=== PATIENT | female | born 1960 | race African-American/Black ===

== ENCOUNTER 2019-11-22 13:03 | Emergency (ER) | payer OTHER ==
[~2019-11-22] VITALS: Ht 167.6 cm; Wt 76.7 kg
[~2019-11-22 13:03] MED LIST: SERT100T12 PO; ZOLP10TA2 PO
[2019-11-22 13:37] LABS: BASOPHILS % (AUTO) 0.5 % (0.0-2.0); EOSINOPHILS % (AUTO) 0.5 % (0.0-6.0); HEMATOCRIT 39 % (33-45); HEMOGLOBIN 12.8 g/dL (11.5-14.8); LYMPHOCYTES # (AUTO) 3.2 /CMM (0.8-4.8); LYMPHOCYTES % (AUTO) 34.9 % (20.0-44.0); MEAN CORPUSCULAR HGB CONC 33 g/dl (31.0-36.0); MEAN CORPUSCULAR VOLUME 98 fL (82-100); MONOCYTES # (AUTO) 0.5 /CMM (0.1-1.30); MONOCYTES % (AUTO) 5.6 % (2.0-12.0); NEUTROPHILS # (AUTO) 5.5 /CMM (1.8-8.9); NEUTROPHILS % (AUTO) 58.5 % (43.0-81.0); PLATELET COUNT (AUTO) 275 /CMM (150-450); RED BLOOD CELL COUNT(AUTO) 4.03 MIL/uL (4.0-5.2); WHITE BLOOD COUNT (AUTO) 9.3 K/uL (4.3-11.0)
[2019-11-22 14:00] LABS: ALBUMIN 3.9 g/dL (3.4-5.0); BILIRUBIN,DIRECT 0.1 mg/dL (0.0-0.2); BILIRUBIN,TOTAL 0.4 mg/dL (0.2-1.0); CREATININE 1.1 mg/dL (0.6-1.3); SALICYLATE 3.1 mg/dL (2.8-20.0); TOTAL PROTEIN, SERUM 7.5 g/dL (6.4-8.2)
[2019-11-22 14:02] LABS: POTASSIUM 2.8 mmol/L (3.5-5.1)
[2019-11-22] MEDS ORDERED: POTASSIUM CL. PREMIX PERIPHER. 50 ML ONE (14:21)
[2019-11-22] MEDS ORDERED: POTASSIUM CL. PREMIX PERIPHER. 50 ML IV ONE (14:30)
[2019-11-22] MEDS ORDERED: POTASSIUM CHLORIDE 20 MEQ TAB.PRT.SR PO ONE ×2 (14:30→14:46)
[2019-11-22] MEDS ORDERED: IV NS 0.9% 1,000 ML BAG IV ONE (14:30)
--- NOTE | 2019-11-22 14:32 | NUR ---
Matteo fajardo in [facility] - 11/22/19 at 1458 by VIVIENICTOR PT BELONGINGS PLACED IN [facility].
--- NOTE | 2019-11-22 14:38 | NUR ---
TOOK OVER PATIENT CARE. PATIENT STATED SHE DID NOT WANT TO STAY IN THE HOSPITAL. IV FLUIDS AND POTASSIUM 50MLS/HR STARTED.
--- NOTE | 2019-11-22 14:41 | NUR ---
PT +SI WITH PLAN BUT DOES NOT WANT TO SHARE PLAN. -HI
--- NOTE | 2019-11-22 14:42 | NUR ---
PT BELONINGS REMOVED AND PLACED IN LOCKER
--- NOTE | 2019-11-22 14:42 | NUR ---
PT VERBALIZED SHE WANTED TO RUN INTO TRAFFIC.
--- NOTE | 2019-11-22 15:04 | NUR ---
PAGED SECURITY FOR WANDING
--- NOTE | 2019-11-22 15:19 | NUR ---
Patient is resting comfortably in bed. Easily aroused. VSS.
--- NOTE | 2019-11-22 15:44 | NUR ---
Matteo fajardo in ED - 11/22/19 at 1545 by VIVIENICTOR Art from crisis at bedside
--- NOTE | 2019-11-22 15:55 | NUR ---
urine collected and sent to lab
--- NOTE | 2019-11-22 16:08 | NUR ---
Social service consult requested by ARCHIE Baker for suicidal ideations and alcohol abuse. Pt. is a 59 year old female who was brought in by EMS for suspected alcohol intoxication. Per EMS, patient was found in the bushes in a business Center across the street from the ED. EMS states that patient was found with a bottle of vodka next to her. NESSA met with the pt. bedside. Pt. is alert and oriented x 4. Pt's mood is congruent. Pt. states she lives with roommates in [place]. Pt. stated she drank a pint of vodka today and does so daily. Pt. while intoxicated stated to the RN upon arrival that she is suicidal. SW asked pt. if she is currently suicidal, pt denied. SW asked pt. if she has a plan, pt. denied that as well. Pt. stated, she did say it earlier when she was intoxicated but is feeling better now. Pt. has a history of psychiatric hospitalization with the most recent hospitalization was at [facility] a few weeks ago. Pt. was discharged last week from [facility]. Pt. has a psychiatric diagnosis of Depression. Pt's. medications include Zoloft and Trazodone. This was pt. 5th detox program. Pt. is jean for safety and informed NESSA, " tomorrow is a holiday and I am going to my man's house in [place]." NESSA encouraged pt. to follow up with her psychiatrist. No other social service needs are requested at this time. NESSA updated ARCHIE Baker with pt's discharge plan.
--- NOTE | 2019-11-22 16:21 | NUR ---
Pt pulled out IV
[2019-11-22 16:23] LABS: APPEARANCE,URINE Slightly Cloudy (CLEAR); BILIRUBIN,URINE Negative (NEGATIVE); BLOOD, URINE Trace-intact Ery/uL (NEGATIVE); COLOR,URINE Yellow (YELLOW); KETONES,URINE Negative (NEGATIVE); LEUKOCYTE ESTERASE ,URINE Small (NEGATIVE); NITRITE, URINE Negative (NEGATIVE); PROTEIN,URINE 100 mg/dl (NEGATIVE); UGLUCOSE Negative (NEGATIVE); UROBILINOGEN,URINE 0.2 EU/dL (0.2)
[2019-11-22 16:42] LABS: BACTERIA,URINE 1+ /HPF (None Seen); SQUAMOUS EPITHELIAL CELL,UR Few /HPF (None Seen)
[2019-11-22] MEDS ORDERED: CEPHALEXIN MONOHYDRATE 500 MG CAPSULE PO ONE ×2 (17:07→17:30)
--- NOTE | 2019-11-22 17:10 | NUR ---
PT VERBALIZED SHE IS NOT SUICIDAL ANYMORE.
--- NOTE | 2019-11-22 17:11 | NUR ---
Patient discharged to home in stable condition. Written and verbal after care instructions given. Patient verbalizes understanding of instruction and RX. IV removed. Catheter intact and site benign. Pressure and 4x4 applied to site. No bleeding noted. PT ambulatory with a steady gait. pt was walked through the ED.
[2019-11-22 17:13] VITALS: BP 126/82
== END 2019-11-22 17:26 | disposition home or self-care (01) ==
LOC: ER 13:05
DX: F10.129 Alcohol abuse with intoxication, unspecified (principal); E87.6 Hypokalemia; N39.0 Urinary tract infection, site not specified; R41.82 Altered mental status, unspecified; F32.9 Major depressive disorder, single episode, unspecified; F13.10 Sedative, hypnotic or anxiolytic abuse, uncomplicated; Y90.6 Blood alcohol level of 120-199 mg/100 ml; Z79.899 Other long term (current) drug therapy
CPT/HCPCS: 36415; 70450; 80048; 80076; 80305; 80307; 80329; 81001; 83735; 85025; 87086; 93005; 96365; 99284; G0480; J3480; J7030; 81000-TC